=== PATIENT | female | born 1940 | race Caucasian/White ===

== ENCOUNTER 2019-06-21 11:07 | Emergency (ER) | payer MEDICARE, MEDICAID ==
[~2019-06-21] VITALS: Ht 152.4 cm; Wt 77.0 kg
[~2019-06-21 11:07] MED LIST: ALPR0.5T8 PO; BACL10TA PO; ESOM40CA49 PO; ESTR1TAB31 PO; LEVO112T5 PO; LISI-600 PO; OXYB5TAB16 PO; POTA20TA19 PO; PRE5T PO; ZOLP5TAB8 PO; [UNRECOGNIZED DRUG - CODE] PO
[2019-06-21] MEDS ORDERED: naproxen sodium 220mg tablet PO ONE (12:55)
[2019-06-21] MEDS ORDERED: HYDROcodone/acetaminophen 5mg/325mg tablet PO ONE (12:55)
[2019-06-21] MEDS ORDERED: acetaminophen 325mg tablet PO ONE (12:55)
[2019-06-21] MEDS ORDERED: LIDO30CR23 TOP (12:56)
--- NOTE | 2019-06-21 13:03 | NUR ---
PT DENIES BEING ALLERGIC TO HYDROCODONE, [place].
--- NOTE | 2019-06-21 13:15 | NUR ---
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
[2019-06-21 13:16] VITALS: BP 105/54
== END 2019-06-21 13:40 | disposition home or self-care (01) ==
LOC: ER 11:07
DX: G89.29 Other chronic pain (principal); N18.9 Chronic kidney disease, unspecified; E11.9 Type 2 diabetes mellitus without complications; E07.9 Disorder of thyroid, unspecified; Z90.49 Acquired absence of other specified parts of digestive tract; Z90.710 Acquired absence of both cervix and uterus; Z98.890 Other specified postprocedural states; Z88.0 Allergy status to penicillin; Z88.2 Allergy status to sulfonamides; Z88.6 Allergy status to analgesic agent; Z79.899 Other long term (current) drug therapy
CPT/HCPCS: 99284